=== PATIENT | male | born 1955 | race Asian ===

== ENCOUNTER 2022-06-09 04:40 | Day surgery (SDC) | payer OTHER ==
[2022-06-07 16:49] VITALS: BMI 25.5
[2022-06-09 13:43] VITALS: TEMP 97.1
[2022-06-09 13:44] VITALS: PULSE 60
[2022-06-09 13:45] VITALS: BP 135/70; RESP 19
== END 2022-06-09 13:41 | disposition home or self-care (01) ==
LOC: JASU-ENDO 04:40
PROVIDERS: ATTEND Internal Medicine Gastroenterology
PROC: 0DJD8ZZ Inspection of Lower Intestinal Tract, Via Natural or Artificial Opening Endoscopic (ICD-10-PCS; principal; 2022-06-09 11:15)
DX: Z12.11 Encounter for screening for malignant neoplasm of colon (principal); K64.8 Other hemorrhoids; R19.5 Other fecal abnormalities